=== PATIENT | male | born 1950 | race Caucasian/White ===

== ENCOUNTER 2021-02-14 08:43 | Inpatient (IN) ==
[2021-02-14] MEDS ORDERED: Melatonin 3 MG TABLET PO PRN (21:45)
[2021-02-14] MEDS ORDERED: Ondansetron ODT 4 MG TAB.RAPDIS SL PRN (21:45)
[2021-02-14] MEDS ORDERED: 0.9 % Sodium Chloride 1,000 ML IVC SCH (21:45)
[2021-02-14] MEDS ORDERED: Naloxone 0.4 MG/ML INJ IVP PRN (21:45)
[2021-02-14] MEDS ORDERED: Acetaminophen 325 MG TABLET PO PRN (21:45)
[2021-02-14] MEDS ORDERED: D5% in Water 1,000 ML IVC PRN (22:01)
[2021-02-14] MEDS ORDERED: Dextrose Gel 15 GM/37.5 ML TUBE PO PRN ×2 (22:01)
[2021-02-14] MEDS ORDERED: *HR* Dextrose 50 % in Water (Syg) 50 ML SYRINGE IVP PRN (22:01)
[2021-02-14] MEDS: DilTIAZem 50 MG/50 ML IV.SOLN IVC SCH (22:54)
[2021-02-14] MEDS: Insulin LISPRO 300 UNITS/3 ML VIAL SUBQ SCH (23:07)
[2021-02-14] MEDS ORDERED: 0.9 % Sodium Chloride 500 ML IVC ONE (23:40)
[2021-02-15 00:16] LABS: Bacteria,Urine Few per hpf (None-Few); Bilirubin,Urine Negative (Negative); Blood,Urine Moderate (Negative); Clarity,Urine Clear (Clear); Color,Urine Light-Yellow (Yellow); Glucose,Urine (UA) 30 mg/dL (Normal); Ketones,Urine Trace mg/dL (Negative); Leukocyte Esterase,Urine Large (Negative); Mucus,Urine Few per lpf (None-Few); Nitrite,Urine Negative (Negative); Protein,Urine Trace mg/dL (Neg-Trace); RBC,Urine 15-30 per hpf (0-3); Specific Gravity,Urine 1.011 (1.010-1.025); Urobilinogen,Urine Normal (Normal); WBC,Urine TNTC per hpf (0-3)
[2021-02-15] MEDS ORDERED: *HR* Heparin 5,000 UNIT/ML VIAL IVP PRN (00:31)
[2021-02-15] MEDS: Piperacillin/Tazobactam 3.375 GM in 0.9 % Sodium Chloride Mini Bag 100 ML IVPB SCH ×3 (01:42→17:53)
[2021-02-15 02:36] LABS: Basophils % 0.1 %; Hematocrit 34.4 % (37.5-50.1); Hemoglobin 11.2 g/dL (12.9-16.9); Immature Granulocytes % 0.5 % (0-4); Lymphocytes # 1.3 K/mcL (0.6-4.6); Lymphocytes % 9.2 %; Mean Corpuscular HGB Conc 32.6 g/dL (31.6-35.5); Mean Corpuscular Hemoglobin 28.6 pg (28.0-33.3); Mean Corpuscular Volume 87.8 fL (83.0-100.0); Mean Platelet Volume 8.8 fL (9.4-12.4); Monocytes # 0.5 K/mcL (0.0-1.3); Monocytes % 3.5 %; Neutrophils # 12.3 K/mcL (1.6-8.9); Platelet Count 174 K/mcL (140-400); Red Blood Count 3.92 M/mcL (4.19-5.50); Red Cell Distribution Width 13.8 % (11.5-14.5); Segmented Neutrophils % 86.7 %; White Blood Count 14.2 K/mcL (4.3-11.1)
[2021-02-15] MEDS: Heparin 25,000UNIT/250ML 1/2NS 25,000 UNIT/250 ML IV.SOLN IVC SCH ×2 (02:43→19:45)
[2021-02-15] MEDS: Vancomycin 1,500 MG/265 ML IV.SOLN IVPB SCH (02:43)
[2021-02-15 02:47] LABS: Heparin anti-factor XA UFH < 0.04 IU/mL (0.30-0.70)
[2021-02-15 02:48] LABS: INR 1.5; Prothrombin Time 16.5 Seconds (9.4-12.1)
[2021-02-15 02:50] LABS: Activated Partial Thrombo Time 30.2 Seconds (26.0-36.0)
[2021-02-15 02:54] LABS: Alanine Aminotransferase 5 Units/L (7-52); Albumin 3.3 g/dL (3.5-5.7); Albumin/Globulin Ratio 1.1 (1.1-2.2); Alkaline Phosphatase 50 Units/L (34-104); Aspartate Amino Transferase 15 Units/L (13-39); BUN/Creatinine Ratio 7 (6-26); Bilirubin,Total 0.6 mg/dL (0.3-1.0); Blood Urea Nitrogen 8 mg/dL (8-23); Calcium 8.3 mg/dL (8.6-10.3); Carbon Dioxide 22 mEq/L (23-29); Chloride 101 mEq/L (98-107); Globulin 3.1 g/dL (2.4-3.5); Glucose 149 mg/dL (70-105); Magnesium 1.3 mg/dL (1.6-2.6); Osmolality,Calculated 279 (280-300); Potassium 3.1 mEq/L (3.5-5.1); Sodium 134 mEq/L (136-145); Total Protein 6.4 g/dL (6.4-8.9); eGFR For African Americans > 60 (> 60); eGFR For Non-African Americans > 60 (> 60)
[2021-02-15] MEDS: DilTIAZem 50 MG/50 ML IV.SOLN IVC SCH (05:45)
[2021-02-15] MEDS: Insulin LISPRO 300 UNITS/3 ML VIAL SUBQ SCH ×3 (09:07→17:53)
[2021-02-15] MEDS: *HR* OxyCODONE Immed Rel 15 MG TABLET PO SCH ×4 (09:31→20:45)
[2021-02-15] MEDS: Ondansetron 4 MG/2 ML VIAL IVP SCH ×2 (10:03→17:52)
[2021-02-15] MEDS ORDERED: Perflutren Lipid Microsphere 1.3 ML in 0.9 % Sodium Chloride 8.7 ML IVP PRN (11:01)
[2021-02-15] MEDS: Pantoprazole 40 MG VIAL IVP SCH (17:52)
[2021-02-15] MEDS ORDERED: *HR* Warfarin 3 MG TABLET PO ONE (18:00)
[2021-02-15] MEDS ORDERED: Warfarin perPT PO PRN (18:00)
[2021-02-16] MEDS: *HR* Heparin 5,000 UNIT/ML VIAL IVP PRN ×3 (00:11→21:52)
[2021-02-16] MEDS: Ondansetron 4 MG/2 ML VIAL IVP SCH ×4 (00:12→17:16)
[2021-02-16] MEDS: Piperacillin/Tazobactam 3.375 GM in 0.9 % Sodium Chloride Mini Bag 100 ML IVPB SCH ×3 (00:15→17:15)
[2021-02-16] MEDS: Vancomycin 1,500 MG/265 ML IV.SOLN IVPB SCH (03:43)
[2021-02-16] MEDS: Pantoprazole 40 MG VIAL IVP SCH ×2 (05:28→17:16)
[2021-02-16 06:34] LABS: Hematocrit 31.9 % (37.5-50.1); Hemoglobin 10.2 g/dL (12.9-16.9); Mean Corpuscular Hemoglobin 28.1 pg (28.0-33.3); Mean Corpuscular Volume 87.9 fL (83.0-100.0); Mean Platelet Volume 9.3 fL (9.4-12.4); Platelet Count 190 K/mcL (140-400); Red Blood Count 3.63 M/mcL (4.19-5.50); Red Cell Distribution Width 13.8 % (11.5-14.5); White Blood Count 14.5 K/mcL (4.3-11.1)
[2021-02-16 06:42] LABS: Heparin anti-factor XA UFH 0.26 IU/mL (0.30-0.70); INR 1.5; Prothrombin Time 16.2 Seconds (9.4-12.1)
[2021-02-16] MEDS: Heparin 25,000UNIT/250ML 1/2NS 25,000 UNIT/250 ML IV.SOLN IVC SCH ×2 (07:20→21:44)
[2021-02-16 07:22] LABS: BUN/Creatinine Ratio 7 (6-26); Blood Urea Nitrogen 7 mg/dL (8-23); Calcium 7.6 mg/dL (8.6-10.3); Carbon Dioxide 20 mEq/L (23-29); Chloride 100 mEq/L (98-107); Glucose 122 mg/dL (70-105); Osmolality,Calculated 271 (280-300); Potassium 3.3 mEq/L (3.5-5.1); Sodium 131 mEq/L (136-145); eGFR For African Americans > 60 (> 60); eGFR For Non-African Americans > 60 (> 60)
[2021-02-16] MEDS: Insulin LISPRO 300 UNITS/3 ML VIAL SUBQ SCH ×3 (08:15→17:15)
[2021-02-16] MEDS: *HR* OxyCODONE Immed Rel 15 MG TABLET PO SCH ×4 (08:33→21:51)
[2021-02-16] MEDS: Furosemide 40 MG TABLET PO SCH (13:08)
[2021-02-16] MEDS ORDERED: tiZANidine 4 MG TABLET PO PRN (17:22)
[2021-02-17] MEDS: Piperacillin/Tazobactam 3.375 GM in 0.9 % Sodium Chloride Mini Bag 100 ML IVPB SCH ×4 (01:11→23:43)
[2021-02-17] MEDS: Vancomycin 1,500 MG/265 ML IV.SOLN IVPB SCH (01:14)
[2021-02-17] MEDS: Ondansetron 4 MG/2 ML VIAL IVP SCH ×3 (02:19→12:30)
[2021-02-17 04:26] LABS: Basophils % 0.2 %; Eosinophils # 0.2 K/mcL (0.0-0.6); Eosinophils % 1.5 %; Hematocrit 33.2 % (37.5-50.1); Hemoglobin 10.9 g/dL (12.9-16.9); Immature Granulocytes % 0.6 % (0-4); Lymphocytes # 3.1 K/mcL (0.6-4.6); Lymphocytes % 23.1 %; Mean Corpuscular HGB Conc 32.8 g/dL (31.6-35.5); Mean Corpuscular Hemoglobin 28.5 pg (28.0-33.3); Mean Corpuscular Volume 86.9 fL (83.0-100.0); Mean Platelet Volume 10.7 fL (9.4-12.4); Monocytes # 0.8 K/mcL (0.0-1.3); Monocytes % 6.1 %; Neutrophils # 9.1 K/mcL (1.6-8.9); Platelet Count 156 K/mcL (140-400); Red Blood Count 3.82 M/mcL (4.19-5.50); Red Cell Distribution Width 13.9 % (11.5-14.5); Segmented Neutrophils % 68.5 %; White Blood Count 13.4 K/mcL (4.3-11.1)
[2021-02-17 04:27] LABS: Hemoglobin 10.6 g/dL (12.9-16.9); Mean Corpuscular HGB Conc 32.1 g/dL (31.6-35.5); Mean Corpuscular Volume 87.1 fL (83.0-100.0); Mean Platelet Volume 11.1 fL (9.4-12.4); Platelet Count 126 K/mcL (140-400); Red Blood Count 3.79 M/mcL (4.19-5.50); Red Cell Distribution Width 13.8 % (11.5-14.5); White Blood Count 13.4 K/mcL (4.3-11.1)
[2021-02-17 04:35] LABS: Heparin anti-factor XA UFH 0.26 IU/mL (0.30-0.70); INR 1.3; Prothrombin Time 14.9 Seconds (9.4-12.1)
[2021-02-17 04:47] LABS: Magnesium 1.9 mg/dL (1.6-2.6); Phosphorous 1.7 mg/dL (2.7-4.5)
[2021-02-17 04:48] LABS: Alanine Aminotransferase 6 Units/L (7-52); Albumin 3.4 g/dL (3.5-5.7); Alkaline Phosphatase 68 Units/L (34-104); Aspartate Amino Transferase 17 Units/L (13-39); BUN/Creatinine Ratio 9 (6-26); Bilirubin,Total 0.8 mg/dL (0.3-1.0); Blood Urea Nitrogen 9 mg/dL (8-23); Calcium 8.1 mg/dL (8.6-10.3); Carbon Dioxide 29 mEq/L (23-29); Chloride 98 mEq/L (98-107); Globulin 3.5 g/dL (2.4-3.5); Glucose 138 mg/dL (70-105); Osmolality,Calculated 279 (280-300); Potassium 3.4 mEq/L (3.5-5.1); Sodium 134 mEq/L (136-145); Total Protein 6.9 g/dL (6.4-8.9); eGFR For African Americans > 60 (> 60); eGFR For Non-African Americans > 60 (> 60)
[2021-02-17] MEDS: *HR* Heparin 5,000 UNIT/ML VIAL IVP PRN (04:53)
[2021-02-17] MEDS: Pantoprazole 40 MG VIAL IVP SCH ×2 (04:54→16:41)
[2021-02-17] MEDS: Insulin LISPRO 300 UNITS/3 ML VIAL SUBQ SCH ×3 (08:31→17:22)
[2021-02-17] MEDS: Furosemide 40 MG TABLET PO SCH (08:58)
[2021-02-17] MEDS: Heparin 25,000UNIT/250ML 1/2NS 25,000 UNIT/250 ML IV.SOLN IVC SCH (08:59)
[2021-02-17] MEDS: *HR* OxyCODONE Immed Rel 15 MG TABLET PO SCH ×4 (09:03→21:19)
[2021-02-17] MEDS ORDERED: Ondansetron 4 MG/2 ML VIAL IVP PRN (13:05)
[2021-02-17] MEDS ORDERED: Furosemide 40 MG/4 ML VIAL IVP ONE (14:05)
[2021-02-17] MEDS ORDERED: *HR* Warfarin 7.5 MG TABLET PO ONE (18:00)
[2021-02-18] MEDS: Pantoprazole 40 MG VIAL IVP SCH (04:48)
[2021-02-18 07:51] LABS: INR 1.4; Prothrombin Time 15.7 Seconds (9.4-12.1)
[2021-02-18 07:53] LABS: Hematocrit 32.8 % (37.5-50.1); Hemoglobin 10.8 g/dL (12.9-16.9); Mean Corpuscular HGB Conc 32.9 g/dL (31.6-35.5); Mean Corpuscular Hemoglobin 28.9 pg (28.0-33.3); Mean Corpuscular Volume 87.7 fL (83.0-100.0); Mean Platelet Volume 9.3 fL (9.4-12.4); Platelet Count 237 K/mcL (140-400); Red Blood Count 3.74 M/mcL (4.19-5.50); Red Cell Distribution Width 13.8 % (11.5-14.5); White Blood Count 11.6 K/mcL (4.3-11.1)
[2021-02-18 07:59] LABS: BUN/Creatinine Ratio 11 (6-26); Blood Urea Nitrogen 12 mg/dL (8-23); Calcium 8.3 mg/dL (8.6-10.3); Carbon Dioxide 34 mEq/L (23-29); Chloride 94 mEq/L (98-107); Glucose 131 mg/dL (70-105); Osmolality,Calculated 282 (280-300); Potassium 3.3 mEq/L (3.5-5.1); Sodium 135 mEq/L (136-145); eGFR For African Americans > 60 (> 60); eGFR For Non-African Americans > 60 (> 60)
[2021-02-18] MEDS ORDERED: Isovue-370 500 ML BOTTLE IVP ONE (08:19)
[2021-02-18] MEDS: Furosemide 40 MG TABLET PO SCH (09:29)
[2021-02-18] MEDS: Piperacillin/Tazobactam 3.375 GM in 0.9 % Sodium Chloride Mini Bag 100 ML IVPB SCH (09:29)
[2021-02-18] MEDS: *HR* OxyCODONE Immed Rel 15 MG TABLET PO SCH ×2 (09:29→13:18)
[2021-02-18] MEDS: Insulin LISPRO 300 UNITS/3 ML VIAL SUBQ SCH ×2 (09:30→13:19)
[2021-02-18 11:00] VITALS: TEMP 97.5
[2021-02-18 13:18] VITALS: BP 102/72; PULSE 92; O2SAT 91
[2021-02-18] MEDS ORDERED: *HR* Warfarin 3 MG TABLET PO ONE (18:00)
== END 2021-02-18 15:32 | disposition home or self-care (01) | DRG 862 ==
LOC: 3NENU → SUATTDRO 02-15 13:41
PROVIDERS: ADMIT Pharmacist; ATTEND Internal Medicine